=== PATIENT | female | born 1985 | race Caucasian/White ===

== ENCOUNTER 2025-08-06 10:54 | Emergency (ER) | payer SELFPAY ==
[2025-08-06] MEDS ORDERED: Lidocaine 1% PF 5 ML VIAL ONE (12:19)
[2025-08-06] MEDS ORDERED: Boostrix 0.5 ML (Tdap) VIAL (>/=7 yrs of age) ONE (12:19)
== END 2025-08-06 13:20 | disposition home or self-care (01) ==
LOC: CSHERS 10:54
DX: S61.411A Laceration without foreign body of right hand, initial encounter (principal); W25.XXXA Contact with sharp glass, initial encounter
CPT/HCPCS: 12002; 90715; 96374; 96375; J2270; J3010

== ENCOUNTER 2025-08-20 11:13 | Emergency (ER) | payer SELFPAY | END 2025-08-20 12:54 | disposition home or self-care (01) | LOC: CSHERS 11:13 | DX: S61.411D Laceration without foreign body of right hand, subsequent encounter (principal); Z48.02 Encounter for removal of sutures; W25.XXXD Contact with sharp glass, subsequent encounter ==